=== PATIENT | male | born 1975 | race Caucasian/White ===

== ENCOUNTER → 2023-12-03 07:48 | Outpatient (REF) | payer BC, SELFPAY | LOC: HWRAD 07:48 | PROVIDERS: ATTENDING PHYSICIAN Student in an Organized Health Care Education/Training Program | DX: R10.13 Epigastric pain (principal) | CPT/HCPCS: 76700 ==

== ENCOUNTER → 2024-04-06 14:56 | Outpatient (REF) | payer BC, SELFPAY | LOC: HWRAD 14:56 | PROVIDERS: ATTENDING PHYSICIAN Student in an Organized Health Care Education/Training Program | DX: R07.81 Pleurodynia (principal) | CPT/HCPCS: 71260; 74160; Q9967 ==

== ENCOUNTER → 2025-05-11 06:42 | Outpatient (REF) | payer OTHER, SELFPAY ==
[2025-05-11 08:06] LABS: Hematocrit 45.8 % (39.0-52.0); Hemoglobin 15.8 g/dL (13.0-18.0); Mean Corp Hgb Conc. 34.5 g/dL (33.0-37.0); Mean Corpuscular Volume 86.4 fL (80.0-94.0); Nucleated Red Blood Cells % 0 % (-); Platelet Count 242 10^3/uL (130-400); Red Cell Dist. Width 12.7 % (11.5-14.5)
[2025-05-11 08:08] LABS: Urine Character Clear (Clear)
[2025-05-11 08:53] LABS: ALT (SGPT) 86 U/L (0-50); AST (SGOT) 351 U/L (17-59); Albumin 4.4 g/dl (3.5-5.0); Alkaline Phosphatase 68 U/L (38-126); Blood Urea Nitrogen 13 mg/dl (9-20); Calcium 9.2 mg/dl (8.4-10.2); Carbon Dioxide 27 mmol/L (22-30); Chloride 105 mmol/L (98-107); Glucose 88 mg/dl (70-99); HDL Cholesterol 51 mg/dl; Potassium 4.9 mmol/L (3.5-5.1); Sodium 136 mmol/L (135-145); Total Protein 7.0 g/dl (6.3-8.2); eGFR > 60.00
[2025-05-11 09:02] LABS: LDL Cholesterol, Calculated 168 mg/dl; Very Low Density Lipoprotein 24 mg/dl (0-30)
== END ==
LOC: RAD 06:42
PROVIDERS: ATTENDING PHYSICIAN Physician Assistant
DX: R10.32 Left lower quadrant pain (principal); Z00.00 Encounter for general adult medical examination without abnormal findings
CPT/HCPCS: 36415; 74177; 80053; 80061; 81003; 84443; 85025; 87086; Q9967